=== PATIENT | male | born 1975 | race African-American/Black ===

== ENCOUNTER 2022-12-11 12:44 | Outpatient (CLI) | payer BC ==
[~2022-12-11 12:44] MED LIST: Magnevist 469MG/ML 20 ML VIAL ONE
== END 2022-12-11 12:45 | disposition home or self-care (01) ==
LOC: CSHMRI 12:44
PROVIDERS: ATTEND Psychiatry & Neurology Neurology
DX: G35 Multiple sclerosis (principal)
CPT/HCPCS: 70553; 72156; 72157